=== PATIENT | female | born 1960 | race American Indian/Alaskan Native ===

== ENCOUNTER 2019-09-13 23:04 | Observation (INO) | payer MEDICAID ==
--- NOTE | 2019-09-14 00:51 | XRay Report ---
CHEST 1 VIEW INDICATION / CLINICAL INFORMATION: Chest Pain. COMPARISON: None available. FINDINGS: SUPPORT DEVICES: None. HEART / MEDIASTINUM: No significant abnormality. LUNGS / PLEURA: No significant pulmonary or pleural abnormality. No pneumothorax. ADDITIONAL FINDINGS: No significant additional findings. IMPRESSION: 1. No acute findings. Signer Name: Eulogio Mann MD Signed: 09/14/2019 12:47 AM Workstation Name: [id number]
[2019-09-14 01:08] LABS: Basophils # (Auto) 0.1 K/mm3 (0.0-0.1); Basophils % (Auto) 0.9 % (0.0-1.8); Eosinophils # (Auto) 0.1 K/mm3 (0.0-0.4); Eosinophils % (Auto) 1.4 % (0.0-4.3); Hematocrit 37.2 % (30.3-42.9); Hemoglobin 13.1 gm/dl (10.1-14.3); Lymphocytes # (Auto) 2.1 K/mm3 (1.2-5.4); Lymphocytes % (Auto) 35.6 % (13.4-35.0); Mean Corpuscular HGB Conc 35 % (30-34); Mean Corpuscular Volume 113 fl (79-97); Monocytes # (Auto) 0.4 K/mm3 (0.0-0.8); Monocytes % (Auto) 6.8 % (0.0-7.3); Platelet Count 146 K/mm3 (140-440); Red Cell Distribution Width 17.6 % (13.2-15.2)
[2019-09-14 01:24] LABS: BUN/Creatinine Ratio 14; Blood Urea Nitrogen 20 mg/dL (7-17); Calcium 9.3 mg/dL (8.4-10.2); Hemolysis Index 8
--- NOTE | 2019-09-14 06:46 | Emergency Department Report ---
ED Chest Pain HPI - General Chief Complaint: Dizziness Stated Complaint: DIZZY SOB LEG PAIN WEAKNESS Time Seen by Provider: 09/14/19 06:35 Source: patient Mode of arrival: Ambulatory Limitations: No Limitations - History of Present Illness Initial Comments: Patient is a 58-year-old female that presents emergency room with complaints of chest pain, dizziness, weakness and near syncope. Patient states her symptoms started yesterday. Patient states the symptoms are worse with exertion and better with rest. Patient states her chest pain is intermittent. Patient states her chest pain as a 7 out of 10. Patient states her chest pain is not radiating is in her left lower chest. Patient complains of shortness of breath at times. Patient denies diaphoresis. Patient denies nausea vomiting. Patient denies anxiety. Patient states she has a past medical history of diabetes, asthma, hypertension. Patient states she is really close to passing out. She also complains of a recent fall onto her tailbone. Patient states she is having sacral pain and some leg numbness since the fall. MD Complaint: chest pain -: Sudden Onset: during rest Pain Location: left chest Pain Radiation: none Severity: severe Severity scale (0 -10): 7 Quality: sharp Consistency: intermittent Improves With: rest Worsens With: exertion re: dyspnea, other (near syncope). denies: nausea, vomting, diaphoresis, sense of impending doom Other Symptoms: denies: cough, fever, syncope, rash, acid taste in mouth, leg swelling, palpitations, burping Treatments Prior to Arrival: none Aspirin use within the Past 7 Days: (1) Yes - Related Data On Oral Contraceptives: No Home Medications Medication Instructions Recorded Confirmed Last Taken Aspirin [Aspirin BABY CHEW TAB] 09/14/19 Unknown Atenolol 09/14/19 Unknown Gabapentin 09/14/19 Unknown Insulin Detemir 09/14/19 Unknown Lisinopril [Zestril TAB] 09/14/19 Unknown chlordiazePOXIDE 09/14/19 Unknown traZODone [Desyrel] 50 mg PO QHS 09/14/19 09/14/19 Unknown Allergies Allergy/AdvReac Type Severity Reaction Status Date / Time No Known Allergies Allergy Unverified 09/14/19 00:00 Heart Score - HEART Score History: Moderately suspicious EKG: Non-specific Age: 45-65 Risk factors: 1-2 risk factors Troponin: < normal limit HEART Score: 4 ED Review of Systems ROS: Stated complaint: DIZZY SOB LEG PAIN WEAKNESS Other details as noted in HPI Constitutional: weakness. denies: chills, fever Eyes: denies: eye pain, eye discharge, vision change ENT: denies: ear pain, throat pain Respiratory: shortness of breath, SOB with exertion. denies: cough, wheezing Cardiovascular: chest pain. denies: palpitations Endocrine: no symptoms reported Gastrointestinal: denies: abdominal pain, nausea, diarrhea Genitourinary: denies: urgency, dysuria, discharge Musculoskeletal: denies: back pain, joint swelling, arthralgia Skin: denies: rash, lesions Neurological: as per HPI, weakness, other. denies: headache, paresthesias Psychiatric: denies: anxiety, depression Hematological/Lymphatic: denies: easy bleeding, easy bruising ED Past Medical Hx - Past Medical History Previous Medical History?: Yes Hx Hypertension: Yes Hx Diabetes: Yes Hx Asthma: Yes Additional medical history: neuropathy, glaucoma - Surgical History Past Surgical History?: Yes Additional Surgical History: states she had 1 surgery but cannot remember what it was. - Family History Family history: no significant - Social History Smoking Status: Current Every Day Smoker Substance Use Type: None - Medications Home Medications: Home Medications Medication Instructions Recorded Confirmed Last Taken Type Aspirin [Aspirin BABY CHEW TAB] 09/14/19 Unknown History Atenolol 09/14/19 Unknown History Gabapentin 09/14/19 Unknown History Insulin Detemir 09/14/19 Unknown History Lisinopril [Zestril TAB] 09/14/19 Unknown History chlordiazePOXIDE 09/14/19 Unknown History traZODone [Desyrel] 50 mg PO QHS 09/14/19 09/14/19 Unknown History ED Physical Exam - General Limitations: No Limitations General appearance: alert, in no apparent distress - Head Head exam: Present: atraumatic, normocephalic - Eye Eye exam: Present: normal appearance - ENT ENT exam: Present: mucous membranes moist - Neck Neck exam: Present: normal inspection - Respiratory Respiratory exam: Present: normal lung sounds bilaterally. Absent: respiratory distress, wheezes, rales, chest wall tenderness - Cardiovascular Cardiovascular Exam: Present: regular rate, normal rhythm. Absent: systolic murmur, diastolic murmur, rubs, gallop - GI/Abdominal GI/Abdominal exam: Present: soft, normal bowel sounds. Absent: distended, tenderness, guarding - Rectal Rectal exam: Present: deferred - Extremities Exam Extremities exam: Present: normal inspection - Back Exam Back exam: Present: normal inspection - Neurological Exam Neurological exam: Present: alert, oriented X3 - Psychiatric Psychiatric exam: Present: normal affect, normal mood - Skin Skin exam: Present: warm, dry, intact, normal color. Absent: rash ED Course Vital Signs 09/14/19 09/14/19 09/14/19 00:00 04:44 06:32 Temperature 97.8 F Pulse Rate 84 73 Respiratory 16 16 Rate Blood Pressure 124/79 108/90 Blood Pressure 128/74 [Left] O2 Sat by Pulse 99 100 Oximetry 09/14/19 09/14/19 09/14/19 07:00 07:15 07:31 Temperature Pulse Rate 60 84 70 Respiratory 15 15 15 Rate Blood Pressure 101/63 108/90 108/90 Blood Pressure [Left] O2 Sat by Pulse 99 100 Oximetry 09/14/19 09/14/19 09/14/19 07:45 08:09 08:15 Temperature Pulse Rate 71 70 68 Respiratory 13 15 19 Rate Blood Pressure 101/63 107/71 112/59 Blood Pressure [Left] O2 Sat by Pulse 100 100 98 Oximetry 09/14/19 09/14/19 09/14/19 08:30 08:45 09:00 Temperature Pulse Rate 66 65 60 Respiratory 15 11 L 15 Rate Blood Pressure 109/65 103/62 113/53 Blood Pressure [Left] O2 Sat by Pulse 99 99 97 Oximetry 09/14/19 09/14/19 09:15 10:31 Temperature 98.4 F Pulse Rate 65 Respiratory 15 Rate Blood Pressure 123/71 Blood Pressure [Left] O2 Sat by Pulse 100 Oximetry - Reevaluation(s) Reevaluation #1: I discussed all results with patient. I discussed plan of care with patient. Patient agrees plan of care and admission. Patient will be admitted to the hospital service. 09/14/19 08:47 - Consultations Consultation #1: Hospitalist consult for admission. Hospitalist admit patient. Bridge orders place. 09/14/19 08:47 SULY score - Suly Score Age > 65: (0) No Aspirin use within the Past 7 Days: (1) Yes 3 or more CAD Risk Factors: (0) No 2 or more Angina events in past 24 hrs: (1) Yes Known CAD with more than 50% Stenosis: (0) No Elevated Cardiac Markers: (0) No ST Deviation Greater than 0.5mm: (0) No SULY Score: 2 ED Medical Decision Making - Lab Data Result diagrams: 09/14/19 00:37 09/14/19 00:37 - EKG Data -: EKG Interpreted by Me EKG shows normal: sinus rhythm, axis, intervals, QRS complexes, ST-T waves Rate: normal - Radiology Data Radiology results: report reviewed Lumbar spine 4 views INDICATION: Low back pain following fall IMPRESSION: Multilevel discogenic and facet arthropathy, particularly at L5-S1 where there is moderate bilateral foraminal stenosis. No acute fracture or subluxation identified. CT BRAIN: 09/14/2019 INDICATION / CLINICAL INFORMATION: dizziness. COMPARISON: None available. FINDINGS: BRAIN/INTRACRANIAL STRUCTURES: Unenhanced CT images of the brain demonstrate no evidence of acute intracranial abnormality. Ventricles and cerebral sulci are normal in size and shape. Cerebellar sulci are slightly prominent, has an indication of mild cerebellar atrophy. There is no evidence of acute ischemic injury, hemorrhage, or mass. There are no abnormal extra- axial fluid collections. EXTRACRANIAL STRUCTURES: Unremarkable. IMPRESSION: No acute abnormality. Probable mild cerebellar atrophy.. CHEST 1 VIEW INDICATION / CLINICAL INFORMATION: Chest Pain. COMPARISON: None available. FINDINGS: SUPPORT DEVICES: None. HEART / MEDIASTINUM: No significant abnormality. LUNGS / PLEURA: No significant pulmonary or pleural abnormality. No pneumothorax. ADDITIONAL FINDINGS: No significant additional findings. IMPRESSION: 1. No acute findings. - Medical Decision Making Patient is a 58-year-old female that presents emergency room with complaints of chest pain, shortness of breath, dizziness, near syncope and weakness. Patient also complaining of a fall and pain to her tailbone. Patient shows negative. Patient's chest x-ray negative. Patient's CT negative. Patient's EKG negative. Patient's initial cardiac workup negative for patient admitted to the hospital service for further evaluation treatment. Patient will also require rule out ACS. - Differential Diagnosis pain. Shortness breath. Dizziness. ACS. Critical Care Time: Yes Critical care time in (mins) excluding proc time.: 35 Critical care attestation.: If time is entered above; I have spent that time in minutes in the direct care of this critically ill patient, excluding procedure time. Critical Care Time: 35 minutes ED Disposition Clinical Impression: Near syncope, Dizziness, SOB (shortness of breath), Weakness, Coccygeal pain, acute Chest pain Qualifiers: Chest pain type: unspecified Qualified Code(s): R07.9 - Chest pain, unspecified Fall Qualifiers: Encounter type: initial encounter Qualified Code(s): W19.XXXA - Unspecified fall, initial encounter Coccyx contusion Qualifiers: Encounter type: initial encounter Qualified Code(s): S30.0XXA - Contusion of lower back and pelvis, initial encounter Disposition: DC-09 OP ADMIT IP TO THIS HOSP Is pt being admited?: Yes Does the pt Need Aspirin: No Condition: Critical Time of Disposition: 08:37
--- NOTE | 2019-09-14 07:28 | XRay Report ---
Lumbar spine 4 views INDICATION: Low back pain following fall IMPRESSION: Multilevel discogenic and facet arthropathy, particularly at L5-S1 where there is moderat e bilateral foraminal stenosis. No acute fracture or subluxation identified. Signer Name: Eulogio Mann MD Signed: 09/14/2019 7:24 AM Workstation Name: [id number]
--- NOTE | 2019-09-14 08:31 | Cat Scan Report ---
CT BRAIN: 09/14/2019 INDICATION / CLINICAL INFORMATION: dizziness. COMPARISON: None available. FINDINGS: BRAIN/INTRACRANIAL STRUCTURES: Unenhanced CT images of the brain demonstrate no evidence of acute int racranial abnormality. Ventricles and cerebral sulci are normal in size and shape. Cerebellar sulci are slightly prominent, has an indication of mild cerebellar atrophy. There is no evidence of acute ischemic injury, hemorrhage, or mass. There are no abnormal extra-axial fluid collections. EXTRACRANIAL STRUCTURES: Unremarkable. IMPRESSION: No acute abnormality. Probable mild cerebellar atrophy.. All CT scans at this location are performed using dose reduction to ALARA by means of automated expos ure control. Signer Name: Gokul Sharpe MD Signed: 09/14/2019 8:26 AM Workstation Name: [email or web address]
--- NOTE | 2019-09-14 13:02 | History and Physical Report ---
History of Present Illness Date of examination: 09/14/19 Date of admission: 09/14/19 08:47 Chief complaint: Chest pain, dizziness, shortness of breath History of present illness: Patient is 58 yo with hypertension, diabetes, diabetic neuropathy. She presents with chest pain, dizziness and almost passed out. She states chest pain is left sided , 10 out of 10 in intensity, sharp pain. There is no radiation. Chest pain worse on exertion and improves with rest. She states she sometimes shortness of breath. While having chest pain she felt she was going to pass out. She therefore came to ED for evaluation. She was seen and evaluated in Emergency Department. Initial Troponin was normal. Will place on observation to rule out acute coronary syndrome. Past History Past Medical History: diabetes, hypertension, other (glucoma, diabetic neuropathy) Past Surgical History: cholecystectomy Social history: single, smoking (half pack cigarettes daily), other (Drinks wine) Family history: diabetes Medications and Allergies Allergies Allergy/AdvReac Type Severity Reaction Status Date / Time No Known Allergies Allergy Unverified 09/14/19 00:00 Home Medications Medication Instructions Recorded Confirmed Last Taken Type traZODone [Desyrel] 50 mg PO QHS 09/14/19 09/14/19 Unknown History Aspirin EC [Halfprin EC] 81 mg PO QDAY #30 tablet. 09/16/19 Unknown Rx Famotidine [Pepcid] 20 mg PO BID #60 tablet 09/16/19 Unknown Rx Gabapentin 800 mg PO TID #90 09/16/19 Unknown Rx Lisinopril [Zestril TAB] 10 mg PO QDAY 30 Days 09/16/19 Unknown Rx Review of Systems All systems: negative (No abd pain, no urinary symptoms, no fever. all other systems reviewed and are negative) Exam - Physical Exam Narrative exam: Gen: Not in acute distress, lying in bed, HEENT: Normocephalic, atraumatic Neck: supple, no JVD Heart: S1 and S2 reg, no murmurs, rubs or gallop Lungs: Clear to auscultation, no rhonchi, no wheeze Abd: soft, non tender, non distended, normal BS, Ext: No edema, no clubbing, no cyanosis Neuro: Awake, alert, oriented X 3, no focal neurological signs, moves all ext Skin:No rashes - Constitutional Vitals: Temp Pulse Resp BP Pulse Ox 98.2 F 64 18 115/66 98 09/14/19 12:45 09/14/19 12:45 09/14/19 12:45 09/14/19 12:45 09/14/19 12:45 Results - Labs CBC & Chem 7: 09/15/19 05:36 09/15/19 05:36 Labs: Abnormal lab results 09/14/19 09/14/19 09/14/19 Range/Units 00:37 00:37 12:57 RBC 3.30 L (3.65-5.03) M/mm3 MCV 113 H (79-97) fl MCH 40 H (28-32) pg MCHC 35 H (30-34) % RDW 17.6 H (13.2-15.2) % Lymph % (Auto) 35.6 H (13.4-35.0) % BUN 20 H (7-17) mg/dL Creatinine 1.4 H (0.7-1.2) mg/dL POC Glucose 65 L (70-105) Assessment and Plan Chest pain Place on Observation Aspirin po daily serial Troponins Stress test in am Obtain d-dimer Hypertension resume home meds near syncope obtain stress test Echo Acute kidney injury etiology unclear baseline Cr unknown Start iv fluids , repeat in am Diabetes mellitus type 2 Check A!C Fingerstick glucose qac and hs Blood glucose on low side so will give D5NS Diabetic neuropathy Give neurontin Full code status
[2019-09-14] MEDS ORDERED: ASPIRIN 325 MG TAB PO STA (13:12)
[2019-09-14 13:20] LABS: Creatine Kinase MB 2.8 ng/mL (0.0-4.0)
[2019-09-14] MEDS ORDERED: ONDANSETRON 4 MG/2 ML INJ IV PRN (14:05)
[2019-09-14] MEDS ORDERED: ALBUTEROL 2.5 MG/3 ML NEBU IH PRN (14:05)
[2019-09-14] MEDS ORDERED: MORPHINE 2 MG/1 ML INJ IV PRN (14:05)
[2019-09-14] MEDS ORDERED: SODIUM CHLORIDE 0.9% 1000 ML 1,000 ML IV SCH (15:00)
--- NOTE | 2019-09-14 15:47 | Vascular Lab Report ---
BILATERAL CAROTID DOPPLER ULTRASOUND INDICATION : near syncope TECHNIQUE: Grayscale and color Doppler imaging performed through the neck. COMPARISON: None FINDINGS: Right: There is no significant atherosclerotic disease. Peak systolic velocity in the CCA is 80 cm/ s with end-diastolic velocity of 21 cm/s. Peak systolic velocity in the proximal ICA is 89 cm/s with end-diastolic velocity of 12 cm/s. ICA to CCA ratio is less than 2. There is antegrade flow in the E CA and the vertebral artery. Left: There is no significant atherosclerotic disease. Peak systolic velocity in the CCA is 80 cm/s w ith end-diastolic velocity of 19 cm/s. Peak systolic velocity in the proximal ICA is 85 cm/s with end -diastolic velocity of 25 cm/s. ICA to CCA ratio is less than 2. There is antegrade flow in the ECA and the vertebral artery. IMPRESSION: No hemodynamically significant stenosis by NASCET criteria. There is less than 50% lumina l narrowing throughout both carotid systems by Doppler velocities. Signer Name: Lucio Mcnally Jr, MD Signed: 09/14/2019 3:42 PM Workstation Name: [id number]
[2019-09-14] MEDS: ACETAMINOPHEN 325 MG TAB PO PRN (17:00)
[2019-09-14 18:01] LABS: Creatine Kinase MB 2.6 ng/mL (0.0-4.0)
[2019-09-14 18:12] LABS: Alanine Aminotransferase 20 units/L (7-56); Albumin 3.9 g/dL (3.9-5)
[2019-09-14 18:26] LABS: INR 1.03 (0.87-1.13)
[2019-09-14 18:28] LABS: Bilirubin,Direct < 0.2 mg/dL (0-0.2)
[2019-09-14] MEDS: GABAPENTIN 300 MG CAP PO SCH (21:02)
[2019-09-14] MEDS: traZODone 50 MG TAB PO SCH (21:02)
--- NOTE | 2019-09-14 22:52 | Nuclear Medicine Report ---
Nuclear medicine pulmonary VQ scan INDICATION: Acute onset chest pain with dyspnea TECHNIQUE: A total of 5 mCi of technetium 99 MAA and 50 mCi of xenon-133 was inhaled per protocol COMPARISON: Radiograph performed 09/14/2019. FINDINGS: Normal wash-in and washout of xenon radiotracer. No mismatch perfusion defect identified IMPRESSION: Low probability for PTE. Signer Name: Eulogio Mann MD Signed: 09/14/2019 10:47 PM Workstation Name: [id number]
[2019-09-15] MEDS: GABAPENTIN 300 MG CAP PO SCH ×3 (05:15→21:35)
[2019-09-15 06:02] LABS: Basophils % (Auto) 0.7 % (0.0-1.8); Eosinophils # (Auto) 0.1 K/mm3 (0.0-0.4); Eosinophils % (Auto) 3.4 % (0.0-4.3); Hematocrit 34.3 % (30.3-42.9); Hemoglobin 11.7 gm/dl (10.1-14.3); Lymphocytes # (Auto) 1.4 K/mm3 (1.2-5.4); Lymphocytes % (Auto) 41.9 % (13.4-35.0); Mean Corpuscular HGB Conc 34 % (30-34); Mean Corpuscular Volume 112 fl (79-97); Monocytes # (Auto) 0.3 K/mm3 (0.0-0.8); Monocytes % (Auto) 10.2 % (0.0-7.3); Platelet Count 125 K/mm3 (140-440); Red Blood Count 3.07 M/mm3 (3.65-5.03); Red Cell Distribution Width 17.6 % (13.2-15.2)
[2019-09-15 06:21] LABS: Alanine Aminotransferase 16 units/L (7-56); Albumin 3.4 g/dL (3.9-5); BUN/Creatinine Ratio 19; Blood Urea Nitrogen 19 mg/dL (7-17); Calcium 8.4 mg/dL (8.4-10.2); Hemolysis Index 11
[2019-09-15] MEDS: D5W/0.45% NACL 1,000 ML IV SCH ×2 (09:28→21:36)
[2019-09-15] MEDS: ASPIRIN EC 325 MG TAB PO SCH (09:28)
[2019-09-15] MEDS: ACETAMINOPHEN 325 MG TAB PO PRN (14:50)
--- NOTE | 2019-09-15 16:33 | Progress Note ---
Assessment and Plan Assessment and plan: Chest pain Place on Observation Aspirin po daily serial Troponins For Stress test in am Hypertension resumed home meds near syncope stress test Echo Acute kidney injury vdue to vasomotor nephropathy etiology unclear baseline Cr unknown Continue iv fluids , repeat in am Diabetes mellitus type 2 A1C 4.2 Fingerstick glucose qac and hs Blood glucose on low side so will give D5NS Diabetic neuropathy Give neurontin Full code status History Interval history: Less chest pain Hospitalist Physical - Physical exam Narrative exam: Gen: Not in acute distress, lying in bed, HEENT: Normocephalic, atraumatic Neck: supple, no JVD Heart: S1 and S2 reg, no murmurs, rubs or gallop Lungs: Clear to auscultation, no rhonchi, no wheeze Abd: soft, non tender, non distended, normal BS, Ext: No edema, no clubbing, no cyanosis Neuro: Awake, alert, oriented X 3, no focal neurological signs, moves all ext - Constitutional Vitals: Temp Pulse Resp BP Pulse Ox 98.4 F 70 18 114/55 100 09/15/19 15:22 09/15/19 15:22 09/15/19 15:22 09/15/19 15:22 09/15/19 15:22 Results - Labs CBC & Chem 7: 09/15/19 05:36 09/15/19 05:36 Labs: Laboratory Last Values WBC 3.4 K/mm3 (4.5-11.0) L 09/15/19 05:36 RBC 3.07 M/mm3 (3.65-5.03) L 09/15/19 05:36 Hgb 11.7 gm/dl (10.1-14.3) 09/15/19 05:36 Hct 34.3 % (30.3-42.9) 09/15/19 05:36 MCV 112 fl (79-97) H 09/15/19 05:36 MCH 38 pg (28-32) H 09/15/19 05:36 MCHC 34 % (30-34) 09/15/19 05:36 RDW 17.6 % (13.2-15.2) H 09/15/19 05:36 Plt Count 125 K/mm3 (140-440) L 09/15/19 05:36 Lymph % (Auto) 41.9 % (13.4-35.0) H 09/15/19 05:36 Shannon % (Auto) 10.2 % (0.0-7.3) H 09/15/19 05:36 Eos % (Auto) 3.4 % (0.0-4.3) 09/15/19 05:36 Baso % (Auto) 0.7 % (0.0-1.8) 09/15/19 05:36 Lymph # 1.4 K/mm3 (1.2-5.4) 09/15/19 05:36 Shannon # 0.3 K/mm3 (0.0-0.8) 09/15/19 05:36 Eos # 0.1 K/mm3 (0.0-0.4) 09/15/19 05:36 Baso # 0.0 K/mm3 (0.0-0.1) 09/15/19 05:36 Seg Neutrophils % 43.8 % (40.0-70.0) 09/15/19 05:36 Seg Neutrophils # 1.5 K/mm3 (1.8-7.7) L 09/15/19 05:36 PT 13.4 Sec. (12.2-14.9) 09/14/19 16:40 INR 1.03 (0.87-1.13) 09/14/19 16:40 D-Dimer 500.63 ng/mlDDU (0-234) H 09/14/19 16:40 Sodium 139 mmol/L (137-145) 09/15/19 05:36 Potassium 4.4 mmol/L (3.6-5.0) 09/15/19 05:36 Chloride 106.1 mmol/L (98-107) 09/15/19 05:36 Carbon Dioxide 19 mmol/L (22-30) L 09/15/19 05:36 Anion Gap 18 mmol/L 09/15/19 05:36 BUN 19 mg/dL (7-17) H 09/15/19 05:36 Creatinine 1.0 mg/dL (0.7-1.2) 09/15/19 05:36 Estimated GFR > 60 ml/min 09/15/19 05:36 BUN/Creatinine Ratio 19 % 09/15/19 05:36 Glucose 79 mg/dL (65-100) 09/15/19 05:36 POC Glucose 82 (70-105) 09/15/19 11:30 Hemoglobin A1c 4.2 % (4-6) 09/14/19 16:40 Calcium 8.4 mg/dL (8.4-10.2) 09/15/19 05:36 Total Bilirubin 0.30 mg/dL (0.1-1.2) 09/15/19 05:36 Direct Bilirubin < 0.2 mg/dL (0-0.2) 09/14/19 16:40 AST 27 units/L (5-40) 09/15/19 05:36 ALT 16 units/L (7-56) 09/15/19 05:36 Alkaline Phosphatase 81 units/L (35-129) 09/15/19 05:36 Total Creatine Kinase 176 units/L (30-135) H 09/14/19 16:40 CK-MB (CK-2) 2.6 ng/mL (0.0-4.0) 09/14/19 16:40 CK-MB (CK-2) Rel Index 1.4 (0-4) 09/14/19 16:40 Troponin T < 0.010 ng/mL (0.00-0.029) 09/14/19 16:40 Total Protein 7.1 g/dL (6.3-8.2) 09/15/19 05:36 Albumin 3.4 g/dL (3.9-5) L 09/15/19 05:36 Albumin/Globulin Ratio 0.9 % 09/15/19 05:36 Active Medications - Current Medications Current Medications: Generic Name Dose Route Start Last Admin Trade Name Freq PRN Reason Stop Dose Admin Acetaminophen 650 mg 09/14/19 14:05 09/15/19 14:50 Tylenol PO 650 mg Q4H PRN Administration Pain MILD(1-3)/Fever >100.5/ESPINOZA Albuterol 2.5 mg 09/14/19 14:05 Proventil IH Q4HRT PRN Shortness Of Breath Aspirin 325 mg 09/15/19 10:00 09/15/19 09:28 Ecotrin PO 325 mg QDAY MARIO Administration Gabapentin 300 mg 09/14/19 22:00 09/15/19 13:08 Gabapentin PO 300 mg Q8HR MARIO Administration Dextrose/Sodium Chloride 1,000 mls @ 75 mls/hr 09/14/19 22:00 09/15/19 09:28 D5/0.45ns IV 75 mls/hr DIRECT MARIO Administration Morphine Sulfate 2 mg 09/14/19 14:05 Morphine IV Q4H PRN Pain, Moderate (4-6) Ondansetron HCl 4 mg 09/14/19 14:05 Zofran IV Q8H PRN Nausea And Vomiting Sodium Chloride 10 ml 09/14/19 22:00 09/15/19 09:29 Sodium Chloride Flush Syringe 10 Ml IV 10 ml BID MARIO Administration Sodium Chloride 10 ml 09/14/19 14:05 Sodium Chloride Flush Syringe 10 Ml IV PRN PRN LINE FLUSH Trazodone HCl 50 mg 09/14/19 22:00 09/14/19 21:02 Desyrel PO 50 mg QHS MARIO Administration
[2019-09-15] MEDS: traZODone 50 MG TAB PO SCH (21:35)
[2019-09-16] MEDS: GABAPENTIN 300 MG CAP PO SCH ×2 (05:27→15:26)
[2019-09-16] MEDS ORDERED: REGADENOSON 0.4 MG/5 ML INJ IV ONE (06:46)
[2019-09-16] MEDS: ASPIRIN EC 325 MG TAB PO SCH (15:26)
[2019-09-16 16:53] VITALS: BP 135/65
--- NOTE | 2019-09-16 17:05 | Discharge Summary ---
Providers - Providers Date of Admission: 09/14/19 08:47 Date of discharge: 09/16/19 Attending physician: HARRISON THURMAN 09/14/19 Consult to Cardiac Rehabilitation [CONS] Routine Reason For Exam: Phase I 09/15/19 15:01 Physical Therapy Evaluation and Treat [CONS] Routine Comment: Reason For Exam: WEAKNESS [facility] Fair Disposition: DC-01 TO HOME OR SELFCARE Exam - Constitutional Vitals: Temp Pulse Resp BP Pulse Ox 98.7 F 60 18 135/65 98 09/16/19 16:35 09/16/19 16:35 09/16/19 16:35 09/16/19 16:35 09/16/19 16:35 Plan Activity: no restrictions Diet: low fat, low cholesterol, low salt, diabetic Plan of Treatment: 1.Follow up with PCP or [facility] 1 week. Prescriptions: Gabapentin 800 mg PO TID #90 Lisinopril [Zestril TAB] 10 mg PO QDAY 30 Days
--- NOTE | 2019-09-16 18:46 | Treadmill Report ---
NUCLEAR STRESS TEST REFERRING PHYSICIAN: Dr. Pereira PROTOCOL: The patient was brought to the stress lab in a postoperative state, given 10 mCi of technetium 99m at rest. The patient underwent rest imaging. The patient underwent Lexiscan stress test. At peak stress, the patient was given 26 mCi of technetium 99m. Shortly thereafter, the patient underwent stress imaging. Raw imaging reveals mild GI artifact, no significant motion artifact. SPECT images examined carefully with horizontal long axis, vertical long axis, short axis views. There is normal homogenous uptake of radioisotope in all reported segments. No evidence of significant fixed or reversible perfusion defect suggestive of prior infarction or ischemia. Gated wall motion reveals normal systolic thickening, calculated ejection fraction of 75%. No TID. CONCLUSIONS: 1. Normal myocardial perfusion scan without evidence of active ischemia or prior infarction. 2. Normal left ventricular systolic performance without evidence of transient ischemic dilatation or stress-induced segmental wall motion abnormalities. 3. Normal Lexiscan stress test without evidence of diagnostic ST changes; arrhythmias or chest pain during stress or recovery. JOB# [id number] SBChitra/PRUDENCIO
== END 2019-09-16 22:30 | disposition home or self-care (01) ==
LOC: ED 23:04 → 4A 09-14 08:47
PROVIDERS: ADMIT Internal Medicine; ATTEND Internal Medicine
DX: R07.89 Other chest pain (principal); N17.9 Acute kidney failure, unspecified; I10 Essential (primary) hypertension; R55 Syncope and collapse; E11.9 Type 2 diabetes mellitus without complications; E11.40 Type 2 diabetes mellitus with diabetic neuropathy, unspecified; F17.210 Nicotine dependence, cigarettes, uncomplicated; Z79.82 Long term (current) use of aspirin; Z90.49 Acquired absence of other specified parts of digestive tract
CPT/HCPCS: 36415; 70450; 71045; 72100; 78452; 78582; 80048; 80053; 80076; 82550; 82553; 82962; 83036; 84484; 85025; 85379; 85610; 87116; 93005; 93010; 93017; 93306; 93880; 96360; 96361; 97116; 97162; 99291; 99406; A9502; A9540; A9558; G0378; J2785; J7030; 96374

== ENCOUNTER 2019-10-13 21:39 | Emergency (ER) | payer MEDICAID ==
--- NOTE | 2019-10-14 00:38 | XRay Report ---
CHEST 2 VIEWS INDICATION: bronchitis. COMPARISON: 09/14/2019. FINDINGS: Support devices: None. Heart: Within normal limits. Lungs/Pleura: No acute air space or interstitial disease. No significant pleural effusion. IMPRESSION: No acute findings. Signer Name: Rich Juarez MD Signed: 10/14/2019 12:33 AM Workstation Name: [id number]
[2019-10-14 05:14] LABS: Bacteria,Urine 4+ /HPF (Negative); Bilirubin,Urine NEG (Negative); Blood,Urine LG (Negative); Color,Urine Yellow (Yellow); Mucus,Urine FEW /HPF; Protein,Urine <15 mg/dL mg/dL (Negative); Urobilinogen,Urine < 2.0 mg/dL (<2.0)
[2019-10-14] MEDS ORDERED: IPRATROPIUM/ALBUTEROL SULFATE 3 ML AMPUL.NEB IH ONE (06:09)
[2019-10-14] MEDS ORDERED: ACETAMINOPHEN W/CODEINE 300-30 MG TAB ONE (06:09)
[2019-10-14] MEDS ORDERED: BENZONATATE 100 MG CAP PO ONE (06:09)
[2019-10-14] MEDS ORDERED: dexAMETHasone 20 MG/5 ML VIAL IM ONE (06:38)
[2019-10-14] MEDS ORDERED: ALBUTEROL 2.5 MG/3 ML NEBU IH ONE (06:38)
[2019-10-14] MEDS ORDERED: AZITHROMYCIN 250 MG TAB PO ONE (06:43)
--- NOTE | 2019-10-14 06:43 | Emergency Department Report ---
ED General Adult HPI - General Chief complaint: Upper Respiratory Infection Stated complaint: RAMÓN, COUGHING Time Seen by Provider: 10/14/19 06:29 Source: patient, EMS Mode of arrival: Ambulatory Limitations: No Limitations - History of Present Illness Initial comments: pt mitesh 58 y/o female who present for cough wheezing x 2 days. hx of bronchitis. symptoms rated at 5/10 , There is no fever no chills, no n/v , no cp. pt states out of proair inhaler. symptoms are excerbated by environmental exposure, symptoms are relivied by albuterol inhaler. Onset/Timin -: days(s) Severity scale (0 -10): 5 Consistency: intermittent Improves with: medication Worsens with: other (environmental exposure ) Associated Symptoms: cough, shortness of breath. denies: fever/chills, nausea/ vomiting - Related Data Home Medications Medication Instructions Recorded Confirmed Last Taken traZODone [Desyrel] 50 mg PO QHS 09/14/19 09/14/19 Unknown Previous Rx's Medication Instructions Recorded Last Taken Type Aspirin EC [Halfprin EC] 81 mg PO QDAY #30 tablet.dr 09/16/19 Unknown Rx Famotidine [Pepcid] 20 mg PO BID #60 tablet 09/16/19 Unknown Rx Gabapentin 800 mg PO TID #90 09/16/19 Unknown Rx Lisinopril [Zestril TAB] 10 mg PO QDAY 30 Days 09/16/19 Unknown Rx ALBUTEROL Inhaler (OR & NICU) 2 puff IH QID PRN #8.5 gram 10/14/19 Unknown Rx [ProAir HFA Inhaler] Amoxicillin [Amoxicillin TAB] 875 mg PO BID 10 Days #20 tablet 10/14/19 Unknown Rx Azithromycin [Zithromax Z-ROSETTA] 250 mg PO DAILY #6 tab 10/14/19 Unknown Rx Benzonatate [Tessalon Perles] 100 mg PO Q8HR PRN #30 capsule 10/14/19 Unknown Rx Ibuprofen [Motrin 800 MG tab] 800 mg PO Q8HR PRN #30 tablet 10/14/19 Unknown Rx predniSONE [Deltasone] 40 mg PO QDAY 5 Days #10 tab 10/14/19 Unknown Rx Allergies Allergy/AdvReac Type Severity Reaction Status Date / Time No Known Allergies Allergy Unverified 09/14/19 00:00 ED Review of Systems ROS: Stated complaint: RAMÓN, COUGHING Other details as noted in HPI Constitutional: denies: chills, fever Eyes: denies: eye pain, eye discharge, vision change ENT: congestion. denies: ear pain, throat pain Respiratory: denies: cough, shortness of breath, wheezing Cardiovascular: denies: chest pain, palpitations Endocrine: no symptoms reported Gastrointestinal: denies: abdominal pain, nausea, diarrhea Genitourinary: denies: urgency, dysuria, discharge Musculoskeletal: denies: back pain, joint swelling, arthralgia Skin: denies: rash, lesions Neurological: denies: headache, weakness, paresthesias Psychiatric: denies: anxiety, depression Hematological/Lymphatic: denies: easy bleeding, easy bruising ED Past Medical Hx - Past Medical History Hx Hypertension: Yes Hx Diabetes: Yes Hx Asthma: Yes Additional medical history: neuropathy, glaucoma - Surgical History Additional Surgical History: states she had 1 surgery but cannot remember what it was. - Social History Smoking Status: Current Every Day Smoker - Medications Home Medications: Home Medications Medication Instructions Recorded Confirmed Last Taken Type traZODone [Desyrel] 50 mg PO QHS 09/14/19 09/14/19 Unknown History Aspirin EC [Halfprin EC] 81 mg PO QDAY #30 tablet. 09/16/19 Unknown Rx Famotidine [Pepcid] 20 mg PO BID #60 tablet 09/16/19 Unknown Rx Gabapentin 800 mg PO TID #90 09/16/19 Unknown Rx Lisinopril [Zestril TAB] 10 mg PO QDAY 30 Days 09/16/19 Unknown Rx ALBUTEROL Inhaler (OR & NICU) 2 puff IH QID PRN #8.5 gram 10/14/19 Unknown Rx [ProAir HFA Inhaler] Amoxicillin [Amoxicillin TAB] 875 mg PO BID 10 Days #20 tablet 10/14/19 Unknown Rx Azithromycin [Zithromax Z-ROSETTA] 250 mg PO DAILY #6 tab 10/14/19 Unknown Rx Benzonatate [Tessalon Perles] 100 mg PO Q8HR PRN #30 capsule 10/14/19 Unknown Rx Ibuprofen [Motrin 800 MG tab] 800 mg PO Q8HR PRN #30 tablet 10/14/19 Unknown Rx predniSONE [Deltasone] 40 mg PO QDAY 5 Days #10 tab 10/14/19 Unknown Rx ED Physical Exam - General Limitations: No Limitations General appearance: alert, in no apparent distress - Head Head exam: Present: atraumatic, normocephalic - Eye Eye exam: Present: normal appearance, PERRL, EOMI Pupils: Present: normal accommodation - ENT ENT exam: Present: mucous membranes moist, TM's normal bilaterally, normal external ear exam - Expanded ENT Exam Expanded Throat exam: Positive: tonsillar erythema, other (no stridor no exudate ). Negative: tonsillomegaly, tonsillar exudate, R peritonsillar mass, L peritonsillar mass - Neck Neck exam: Present: normal inspection, full ROM. Absent: tenderness, lymphade nopathy - Respiratory Respiratory exam: Present: normal lung sounds bilaterally, wheezes. Absent: respiratory distress, rales, rhonchi, stridor, chest wall tenderness, decreased breath sounds, prolonged expiratory - Cardiovascular Cardiovascular Exam: Present: regular rate, normal rhythm, normal heart sounds. Absent: systolic murmur, diastolic murmur, rubs, gallop - GI/Abdominal GI/Abdominal exam: Present: soft, normal bowel sounds. Absent: distended, tenderness, bruit, hernia - Extremities Exam Extremities exam: Present: normal inspection, full ROM, normal capillary refill. Absent: tenderness - Back Exam Back exam: Present: normal inspection, full ROM. Absent: CVA tenderness (R), CVA tenderness (L) - Neurological Exam Neurological exam: Present: alert, oriented X3, CN II-XII intact, normal gait, motor sensory deficit, reflexes normal - Psychiatric Psychiatric exam: Present: normal affect, normal mood - Skin Skin exam: Present: warm, dry, intact, normal color. Absent: rash ED Course Vital Signs 10/13/19 10/13/19 10/14/19 21:49 23:30 01:51 Temperature 99.0 F 98.6 F 98.3 F Pulse Rate 94 H 89 99 H Respiratory 16 20 16 Rate Blood Pressure 101/69 139/83 119/77 O2 Sat by Pulse 97 99 99 Oximetry ED Medical Decision Making - Radiology Data Radiology results: report reviewed, image reviewed Findings [facility] [address] [place] [address] XRay Report Signed Patient: GHULAM BROWN MR#: [id number] : 1960 Acct:[id number] Age/Sex: 58 / F ADM Date: 10/13/19 Loc: ED Attending Dr: Ordering Physician: MADHU GREENWOOD MD Date of Service: 10/13/19 Procedure(s): XR chest routine 2V Accession Number(s): [id number] cc: MADHU GREENWOOD MD Fluoro Time In Minutes: CHEST 2 VIEWS INDICATION: bronchitis. COMPARISON: 09/14/2019. FINDINGS: Support devices: None. Heart: Within normal limits. Lungs/Pleura: No acute air space or interstitial disease. No significant pleural effusion. IMPRESSION: No acute findings. Signer Name: Rich Juarez MD Signed: 10/14/2019 12:33 AM Workstation Name: [id number] Transcribed By: ES Dictated By: Rich Juarez MD Electronically Authenticated By: Rich Juarez MD Signed Date/Time: 10/14/1932 DD/ TD/TT: - Medical Decision Making this is a bronchitis, plan: azithromycin, amoxicillin, albuterol, prednisone, ibuprofen tessalon pearls follow up with pcp in 2-3 days. return to ed if symptoms worsen. pt verbalized agreement and understanding of same. pt verbalized agreement and understanding of same. Critical care attestation.: If time is entered above; I have spent that time in minutes in the direct care of this critically ill patient, excluding procedure time. ED Disposition Clinical Impression: Bronchitis Disposition: DC-01 TO HOME OR SELFCARE Is pt being admited?: No Does the pt Need Aspirin: No Condition: Stable Instructions: Chronic Bronchitis (ED) Prescriptions: Amoxicillin [Amoxicillin TAB] 875 mg PO BID 10 Days #20 tablet predniSONE [Deltasone] 40 mg PO QDAY 5 Days #10 tab Ibuprofen [Motrin 800 MG tab] 800 mg PO Q8HR PRN #30 tablet PRN Reason: pain fever ALBUTEROL Inhaler (OR & NICU) [ProAir HFA Inhaler] 2 puff IH QID PRN #8.5 gram PRN Reason: Shortness Of Breath Benzonatate [Tessalon Perles] 100 mg PO Q8HR PRN #30 capsule PRN Reason: Cough Azithromycin [Zithromax Z-ROSETTA] 250 mg PO DAILY #6 tab Referrals: ELIZABETH BLACKWOOD MD [Staff Physician] - 3-5 Days PRIMARY CARE, [Primary Care Provider] - 3-5 Days Time of Disposition: 07:12
[2019-10-14 07:27] VITALS: BP 110/56
== END 2019-10-14 07:26 | disposition home or self-care (01) ==
LOC: ED 21:39
DX: J40 Bronchitis, not specified as acute or chronic (principal); I10 Essential (primary) hypertension; E11.9 Type 2 diabetes mellitus without complications; J45.909 Unspecified asthma, uncomplicated; F17.200 Nicotine dependence, unspecified, uncomplicated; Z79.899 Other long term (current) drug therapy
CPT/HCPCS: 71046; 81001; 94640; 96372; 99284; J1100

== ENCOUNTER 2021-05-06 12:37 | Emergency (ER) | payer MEDICAID ==
--- NOTE | 2021-05-06 13:57 | Event Note ---
ED Screening Note Date of service: 05/06/21 Time: 13:57 ED Screening Note: 60-year-old female presents to the ER with complaints of generalized weakness, dizziness, fatigue, numbness in both legs and falling. She states that her symptoms has been ongoing for about a month. Past medical history significant for diabetes, hypertension, alcohol abuse which she drinks about 6 packs of beer per day, tobacco use but she denies any drug use. This initial assessment/diagnostic orders/clinical plan/treatment(s) is/are subject to change based on patients health status, clinical progression and re- assessment by fellow clinical providers in the ED. Further treatment and workup at subsequent clinical providers discretion. Patient/guardian urged not to elope from the ED as their condition may be serious if not clinically assessed and managed. Initial orders include: Labs/EKG/chest x-ray
--- NOTE | 2021-05-06 14:20 | XRay Report ---
CHEST 2 VIEWS INDICATION / CLINICAL INFORMATION: weakness. COMPARISON: 10/14/2019 FINDINGS: SUPPORT DEVICES: None. HEART / MEDIASTINUM: Stable. LUNGS / PLEURA: No significant pulmonary or pleural abnormality. No pneumothorax. ADDITIONAL FINDINGS: No significant additional findings. IMPRESSION: 1. No acute findings. No significant interval change. Signer Name: Devan Mckeon MD Signed: 05/06/2021 2:16 PM Workstation Name: [id number]
--- NOTE | 2021-05-06 15:06 | Electrocardiograph Report ---
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
[2021-05-06 15:15] LABS: Alanine Aminotransferase 17 units/L (7-56); Albumin 3.1 g/dL (3.9-5); BUN/Creatinine Ratio 9; Blood Urea Nitrogen 7 mg/dL (7-17); Calcium 9.1 mg/dL (8.4-10.2); Hemolysis Index 4
[2021-05-06 15:24] LABS: Basophils % (Auto) 0.3 % (0.0-1.8); Eosinophils % (Auto) 0.4 % (0.0-4.3); Hematocrit 37.4 % (30.3-42.9); Hemoglobin 12.9 gm/dl (10.1-14.3); Lymphocytes # (Auto) 1.1 K/mm3 (1.2-5.4); Lymphocytes % (Auto) 13.7 % (13.4-35.0); Mean Corpuscular HGB Conc 35 % (30-34); Mean Corpuscular Volume 109 fl (79-97); Monocytes # (Auto) 0.8 K/mm3 (0.0-0.8); Monocytes % (Auto) 10.2 % (0.0-7.3); Platelet Count 189 K/mm3 (140-440); Red Blood Count 3.44 M/mm3 (3.65-5.03); Red Cell Distribution Width 13.9 % (13.2-15.2)
--- NOTE | 2021-05-06 21:57 | Emergency Department Report ---
HPI - General Chief Complaint: Weakness Time Seen by Provider: 05/06/21 13:36 - HPI HPI: This is a 60-year-old -[place] female presents to the emergency department with complaints of a 1 month history of shortness of breath, generalized weakness, numbness and paresthesias in her feet, and a [id number] feeling in her lower back. She has a past medical history of insulin-dependent diabetes, peripheral neuropathy, hypertension. The patient says that she has not taken anything for symptoms prior to presentation. She does not have a primary care physician. No recent travel or sick contacts at home. She denies any fever, chest pain, cough, vomiting, lower extremity swelling, rash. She denies any tobacco or illicit drug use. ED Past Medical Hx - Past Medical History Hx Hypertension: Yes Hx Diabetes: Yes Hx Asthma: Yes Additional medical history: neuropathy, glaucoma - Surgical History Past Surgical History?: Yes Additional Surgical History: states she had 1 surgery but cannot remember what it was. - Social History Smoking Status: Current Every Day Smoker - Medications Home Medications: Home Medications Medication Instructions Recorded Confirmed Last Taken Type traZODone [Desyrel] 50 mg PO QHS 09/14/19 09/14/19 Unknown History Aspirin EC [Halfprin EC] 81 mg PO QDAY #30 tablet. 09/16/19 Unknown Rx Famotidine [Pepcid] 20 mg PO BID #60 tablet 09/16/19 Unknown Rx Gabapentin 800 mg PO TID #90 09/16/19 Unknown Rx lisinopriL [Zestril TAB] 10 mg PO QDAY 30 Days 09/16/19 Unknown Rx Amoxicillin [Amoxicillin TAB] 875 mg PO BID 10 Days #20 tablet 10/14/19 Unknown Rx Azithromycin [Zithromax Z-ROSETTA] 250 mg PO DAILY #6 tab 10/14/19 Unknown Rx Benzonatate [Tessalon Perles] 100 mg PO Q8HR PRN #30 capsule 10/14/19 Unknown Rx Ibuprofen [Motrin 800 MG tab] 800 mg PO Q8HR PRN #30 tablet 10/14/19 Unknown Rx predniSONE [Deltasone] 40 mg PO QDAY 5 Days #10 tab 10/14/19 Unknown Rx Albuterol Mdi (or & Nicu Only) 2 puff IH QID PRN #8.5 gram 05/06/21 Unknown Rx [ProAir HFA Inhaler] lisinopriL [Lisinopril] 10 mg PO QDAY #30 tablet 05/06/21 Unknown Rx ED Review of Systems ROS: Stated complaint: WEAK Other details as noted in HPI Comment: All other systems reviewed and negative Constitutional: weakness. denies: fever Eyes: denies: eye pain, vision change ENT: denies: ear pain, throat pain Respiratory: shortness of breath. denies: cough Cardiovascular: denies: chest pain, palpitations, edema Gastrointestinal: denies: vomiting, diarrhea, constipation Genitourinary: denies: dysuria, discharge Musculoskeletal: back pain Neurological: numbness, paresthesias. denies: headache Physical Exam - Physical Exam Vital Signs: Vital Signs 05/06/21 12:57 Temperature 98.1 F Pulse Rate 88 Respiratory 18 Rate Blood Pressure 131/73 [Right] O2 Sat by Pulse 99 Oximetry Physical Exam: GENERAL: The patient is well-developed well-nourished. HENT: Normocephalic. Atraumatic. Patient has moist mucous membranes. EYES: Extraocular motions are intact. Pupils equal reactive to light bilateral ly. No nystagmus. NECK: Supple. Trachea is midline. CHEST/LUNGS: Clear to auscultation. There is no respiratory distress noted. HEART/CARDIOVASCULAR: Regular. There is no tachycardia. There is no murmur. ABDOMEN: Abdomen is soft, nontender. Patient has normal bowel sounds. There is no abdominal distention. SKIN: Skin is warm and dry. NEURO: The patient is awake, alert, and oriented. The patient is cooperative. The patient has no focal neurologic deficits. Normal speech. Cranial nerves II through XII grossly intact. No pronator drift or dysmetria. MUSCULOSKELETAL: There is no tenderness or deformity. There is no limitation range of motion. There is no evidence of acute injury. Muscle strength 5 out of 5 for upper and lower extremities bilaterally. ED Course Vital Signs 05/06/21 12:57 Temperature 98.1 F Pulse Rate 88 Respiratory 18 Rate Blood Pressure 131/73 [Right] O2 Sat by Pulse 99 Oximetry ED Medical Decision Making - Lab Data Result diagrams: 05/06/21 14:16 05/06/21 14:16 Lab Results 05/06/21 05/06/21 05/06/21 Range/Units 14:16 14:16 14:16 WBC 8.0 (4.5-11.0) K/mm3 RBC 3.44 L (3.65-5.03) M/mm3 Hgb 12.9 (10.1-14.3) gm/dl Hct 37.4 (30.3-42.9) % MCV 109 H (79-97) fl MCH 38 H (28-32) pg MCHC 35 H (30-34) % RDW 13.9 (13.2-15.2) % Plt Count 189 (140-440) K/mm3 Lymph % (Auto) 13.7 (13.4-35.0) % [place] % (Auto) 10.2 H (0.0-7.3) % Eos % (Auto) 0.4 (0.0-4.3) % Baso % (Auto) 0.3 (0.0-1.8) % Lymph # (Auto) 1.1 L (1.2-5.4) K/mm3 [place] # (Auto) 0.8 (0.0-0.8) K/mm3 Eos # (Auto) 0.0 (0.0-0.4) K/mm3 Baso # (Auto) 0.0 (0.0-0.1) K/mm3 Seg Neutrophils % 75.4 H (40.0-70.0) % Seg Neutrophils # 6.0 (1.8-7.7) K/mm3 Sodium 133 L (137-145) mmol/L Potassium 3.3 L (3.6-5.0) mmol/L Chloride 94.5 L (98-107) mmol/L Carbon Dioxide 26 (22-30) mmol/L Anion Gap 16 mmol/L BUN 7 (7-17) mg/dL Creatinine 0.8 (0.6-1.2) mg/dL Estimated GFR > 60 ml/min BUN/Creatinine Ratio 9 % Glucose 86 (65-100) mg/dL Calcium 9.1 (8.4-10.2) mg/dL Magnesium 2.00 (1.7-2.3) mg/dL Total Bilirubin 2.20 H (0.1-1.2) mg/dL AST 45 H (5-40) units/L ALT 17 (7-56) units/L Alkaline Phosphatase 97 (35-129) units/L Total Creatine Kinase 57 (30-135) units/L Troponin T 0.012 (0.00-0.029) ng/mL Total Protein 8.0 (6.3-8.2) g/dL Albumin 3.1 L (3.9-5) g/dL Albumin/Globulin Ratio 0.6 % TSH (0.270-4.200) mlU/mL 05/06/ Range/Units 14:16 WBC (4.5-11.0) K/mm3 RBC (3.65-5.03) M/mm3 Hgb (10.1-14.3) gm/dl Hct (30.3-42.9) % MCV (79-97) fl MCH (28-32) pg MCHC (30-34) % RDW (13.2-15.2) % Plt Count (140-440) K/mm3 Lymph % (Auto) (13.4-35.0) % [place] % (Auto) (0.0-7.3) % Eos % (Auto) (0.0-4.3) % Baso % (Auto) (0.0-1.8) % Lymph # (Auto) (1.2-5.4) K/mm3 [place] # (Auto) (0.0-0.8) K/mm3 Eos # (Auto) (0.0-0.4) K/mm3 Baso # (Auto) (0.0-0.1) K/mm3 Seg Neutrophils % (40.0-70.0) % Seg Neutrophils # (1.8-7.7) K/mm3 Sodium (137-145) mmol/L Potassium (3.6-5.0) mmol/L Chloride (98-107) mmol/L Carbon Dioxide (22-30) mmol/L Anion Gap mmol/L BUN (7-17) mg/dL Creatinine (0.6-1.2) mg/dL Estimated GFR ml/min BUN/Creatinine Ratio % Glucose (65-100) mg/dL Calcium (8.4-10.2) mg/dL Magnesium (1.7-2.3) mg/dL Total Bilirubin (0.1-1.2) mg/dL AST (5-40) units/L ALT (7-56) units/L Alkaline Phosphatase (35-129) units/L Total Creatine Kinase (30-135) units/L Troponin T (0.00-0.029) ng/mL Total Protein (6.3-8.2) g/dL Albumin (3.9-5) g/dL Albumin/Globulin Ratio % TSH 3.050 (0.270-4.200) mlU/mL - EKG Data -: EKG Interpreted by Me EKG shows normal: sinus rhythm, axis, intervals, QRS complexes, ST-T waves (There is some generalized flattening of T waves) Rate: normal - EKG Data When compared to previous EKG there are: no significant change Interpretation: unchanged when compared t (09/14/19) - Radiology Data Radiology results: report reviewed, image reviewed interpreted by me: Chest x-ray does not show any acute process. There are no pleural effusions, obvious pneumonia and there is no pneumothorax. Examination: CT of the head without contrast Clinical information: Weakness Comparison: CT of the head, 09/14/2019 Technical: Multiple axial CT images of the head were obtained without intravenous contrast. Sagittal and coronal re formats were obtained. All CTs at this facility utilize dose reduction techniques including automated exposure control, iterative reconstruction and weight based dosing when appropriate to reduce patient radiation dose to as low as reasonable achievable. Findings: INTRACRANIAL CONTENTS: There is no CT evidence of acute intracranial hemorrhage. Confluent regions of hypodensity are again noted within the periventricular white matter bilaterally. There is mild generalized atrophy. There is no evidence of mass effect or midline shift. The ventricular system remains normal in size. SKULL: No acute bony abnormality is visualized. ORBITS: The bilateral orbits and globes appear normal PARANASAL SINU SES / MASTOID AIR CELLS: Paranasal sinuses and mastoid air cells appear clear. Impression: 1. No CT evidence of acute intracranial process. 2. Changes associated with chronic small vessel ischemic disease and atrophy. - Medical Decision Making This patient presented to the emergency department with a 1 month history of shortness of breath, generalized weakness, low back pain, and what sounds like peripheral neuropathy to the feet. On examination she does not have any focal, motor or sensory deficits and her cranial nerves are intact. The patient's hear t and lung sounds are normal to auscultation and she does not appear in any respiratory or acute distress. She has a 0 on the NIH stroke scale. EKG does not have any morphology consistent with ST elevation myocardial infarction or any arrhythmia. CT scan of the head did not show any large vessel occlusion, hemorrhage, hydrocephalus, edema, or any other acute process. Labs have been mostly unremarkable including CBC, metabolic panel, normal thyroid function, negative troponin. She had very mild hypokalemia that was replaced with potassium chloride. Vital signs have been reassuring throughout her ED course including being afebrile. Patient was seen ambulatory in the emergency department and both appears and feels stable. For all these reasons patient appears safe for discharge home at this time. She has been given outpatient referrals for primary care. She will return to the emergency department with any worsening of her symptoms or with any acute distress. Critical Care Time: No Critical care attestation.: If time is entered above; I have spent that time in minutes in the direct care of this critically ill patient, excluding procedure time. ED Disposition Clinical Impression: SOB (shortness of breath), Generalized weakness, Hypokalemia Hypertension Qualifiers: Hypertension type: essential hypertension Qualified Code(s): I10 - Essential (primary) hypertension Peripheral neuropathy Qualifiers: Peripheral neuropathy type: polyneuropathy, unspecified Qualified Code(s): G62.9 - Polyneuropathy, unspecified Disposition: DC-01 TO HOME OR SELFCARE Is pt being admited?: No Condition: Stable Instructions: Hypokalemia, Peripheral Neuropathy, Shortness of Breath, Adult, Weakness, Hypertension, Adult, Hypertension (ED) Additional Instructions: Please follow-up with a primary care physician in the next few days. I have given you a referral for a local primary care physician and a primary care cli rupert. Try to stay away from foods that are high in salt and caffeinated products. Keep a blood pressure log. Stay away from foods that are high in sugar, carbohydrates and starches. Keep a blood sugar log. Return to the emergency department with any worsening of your symptoms, new or concerning symptoms not addressed during this current emergency department visit, or with any acute distress. Prescriptions: lisinopriL [Lisinopril] 10 mg PO QDAY #30 tablet Albuterol Mdi (or & Nicu Only) [ProAir HFA Inhaler] 2 puff IH QID PRN #8.5 gram PRN Reason: Shortness Of Breath Referrals: MICHAELLE RENEE MD [Staff Physician] - 2-3 Days [facility] [Provider Group] - 2-3 Days Time of Disposition: 22:54 - Assessment Assessment Interval: Baseline - Level of Consciousness 1a. Level of Consciousness: alert/keenly responsive - LOC Questions 1b. LOC Questions: answers both correctly - LOC Command 1c. LOC Commands: performs tasks correctly - Best Gaze 2. Best Gaze: normal - Visual 3. Visual: no visual loss - Facial Palsy 4. Facial Palsy: normal symmetrical movement - Motor Arm 5a. Motor Arm Left: no drift 5b. Motor Arm Right: no drift - Motor Leg 6a. Motor Leg Left: no drift 6b. Motor Leg Right: no drift - Limb Ataxia 7. Limb Ataxia: absent - Sensory 8. Sensory: normal - Best Language 9. Best Language: no aphasia - Dysarthria 10. Dysarthria: normal - Extinction and Inattention 11. Extinction/Inattention: no abnormality - Scoring Total Score: 0 Stroke Severity: No Stroke Symptoms
[2021-05-06 22:02] VITALS: BP 160/87
[2021-05-06] MEDS ORDERED: POTASSIUM CHLORIDE ER 20 MEQ TAB PO ONE (22:26)
--- NOTE | 2021-05-06 22:42 | Cat Scan Report ---
Examination: CT of the head without contrast Clinical information: Weakness Comparison: CT of the head, 09/14/2019 Technical: Multiple axial CT images of the head were obtained without intravenous contrast. Sagittal and coronal reformats were obtained. All CTs at this facility utilize dose reduction techniques inc luding automated exposure control, iterative reconstruction and weight based dosing when appropriate to reduce patient radiation dose to as low as reasonable achievable. Findings: INTRACRANIAL CONTENTS: There is no CT evidence of acute intracranial hemorrhage. Confluent regions of hypodensity are again noted within the periventricular white matter bilaterally. There is mild gener alized atrophy. There is no evidence of mass effect or midline shift. The ventricular system remains normal in size. SKULL: No acute bony abnormality is visualized. ORBITS: The bilateral orbits and globes appear normal PARANASAL SINUSES / MASTOID AIR CELLS: Paranasal sinuses and mastoid air cells appear clear. Impression: 1. No CT evidence of acute intracranial process. 2. Changes associated with chronic small vessel ischemic disease and atrophy. Signer Name: Ami Wu MD Signed: 05/06/2021 10:37 PM Workstation Name: [id number]
--- NOTE | 2021-05-10 18:30 | Electrocardiograph Report ---
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
== END 2021-05-06 23:00 | disposition home or self-care (01) ==
LOC: ED 12:37
DX: G62.9 Polyneuropathy, unspecified (principal); I10 Essential (primary) hypertension; E87.6 Hypokalemia; R53.1 Weakness; R06.02 Shortness of breath; E11.9 Type 2 diabetes mellitus without complications; J45.909 Unspecified asthma, uncomplicated; F17.200 Nicotine dependence, unspecified, uncomplicated; Z98.890 Other specified postprocedural states; Z79.1 Long term (current) use of non-steroidal anti-inflammatories (NSAID); Z79.2 Long term (current) use of antibiotics; Z79.899 Other long term (current) drug therapy
CPT/HCPCS: 36415; 70450; 71046; 80053; 82550; 83735; 84443; 84484; 85025; 93005